=== PATIENT | male | born 1975 | race Caucasian/White ===

== ENCOUNTER 2016-08-11 12:06 | Inpatient (IN) ==
--- NOTE | 2016-08-11 13:08 | Diag Imaging Result Doc PS360 ---
EXAM: CHEST-PORTABLE HISTORY: sob/cp TECHNIQUE: Erect AP portable chest COMMENT: there is cardiomegaly. Compared to 01/07/2015 there has been no significant change in the appearance of the chest. IMPRESSION: Stable chest. Electronically signed by Jeffery Alcazar 08/11/2016 1:05 PM
[2016-08-11 13:21] LABS: MANUAL DIFF NEEDED? NO
[2016-08-11 13:30] LABS: BASO% 0.2 % (0.0-0.8); EOS# 0.01 X1000 (0.0-0.7); EOS% 0.1 % (0.0-10.0); HEMATOCRIT 38.9 % (42.0-52.0); HEMOGLOBIN 13.4 g/dL (14.0-18.0); IMM GRAN# 0.09 X1000 (0.0-0.04); IMM GRAN% 0.7 % (0.0-0.5); LYMPH# 1.01 X1000 (1.2-3.4); LYMPH% 8.4 % (20.5-51.1); MCH 27.9 PG (27-31); MCHC 34.4 g/dL (33-37); MCV 80.9 FL (81-99); MONO# 0.87 X1000 (0.11-0.59); MONO% 7.2 % (1.7-9.3); NEUT% 83.4 % (42.2-75.2); PLT 198 X1000 (130-400); RBC 4.81 XMIL (4.7-6.1)
[2016-08-11 13:43] LABS: AGAP 13; ALBUMIN 3.5 g/dL (3.5-5.0); ALKALINE PHOSPHATASE 80 U/L (32-122); BUN 17 mg/dL (8-22); CALCIUM 8.3 mg/dL (8.8-10.2); CHLORIDE 89 mmol/L (98-107); COSMO 269; GOT 38 U/L (10-34); GPT 49 U/L (10-44); SODIUM 131 mmol/L (136-145); TCO2 29 mmol/L (25-35); TOTAL PROTEIN 7.4 g/dL (6.3-8.3)
[2016-08-11] MEDS ORDERED: NS + KCL 40 MEQ 1,000 ML IV ONE (14:13)
[2016-08-11] MEDS ORDERED: KEFZOL 1 GM/D5W 1 GM/50 ML IVPB IV ONE (14:22)
[2016-08-11] MEDS ORDERED: ZOFRAN IV PRN (15:45)
[2016-08-11] MEDS ORDERED: TYLENOL PO PRN (15:45)
[2016-08-11] MEDS ORDERED: KEFZOL 1 GM/D5W 1 GM/50 ML IVPB IV SCH (17:15)
[2016-08-11] MEDS: NS 1,000 ML IV SCH (18:07)
[2016-08-11] MEDS: POTASSIUM CHLORIDE 20 MEQ/SWI 20 MEQ/100 ML IVPB IV SCH (18:07)
--- NOTE | 2016-08-11 21:49 | HISTORY AND PHYSICAL ---
CHIEF COMPLAINT: Left foot redness and edema. HISTORY OF PRESENT ILLNESS: This is a 40-year-old morbidly obese gentleman with a history of left lower extremity venous stasis, hypertension, currently not on medications and tobacco abuse. He presented to the emergency room complaining of bilateral lower extremity edema that is greater on the left and right with redness, pain and edema to his left foot. He denies any known injury. He states that he has had lower extremity edema, but when he stood up this morning his foot hurt on the top of his foot to bear any weight and he noticed redness. He does have chronic edema from the knees down. He denied any injury, any prior episodes, any known spider bites, bug bites. He was found to have a white count of 12 with a potassium of 2.3, a sodium of 131. In the emergency room he was given Kefzol and admitted for further evaluation and treatment. PAST MEDICAL HISTORY: Hypertension, morbid obesity, chronic venous stasis. PAST SURGICAL HISTORY: Denies. SOCIAL HISTORY: He denies illicit drug or alcohol use. He does smoke half a pack of cigarettes a day. ALLERGIES: No known drug allergies. HOME MEDICATIONS: Prilosec 20 mg daily. Norvasc 10 mg at bedtime. Prinivil 20 mg daily. Hygroton 25 mg daily. REVIEW OF SYSTEMS: A 14 point review of systems is discussed with patient with pertinent positives stated in HPI. He denied chest pain, palpitations, shortness of breath, dizziness, syncope, any PND, orthopnea, nausea, vomiting, diarrhea, constipation, black or bloody vomitus, black or bloody stools, hematuria, dysuria, frequency, urgency. PHYSICAL EXAMINATION: GENERAL: This is a morbidly obese 40-year-old male, who is sitting up in the bed in no distress. VITAL SIGNS: Blood pressure is 125/72 with a heart rate of 92, respirations are 20, temperature is 98.1 degrees oral with oxygen saturation 96-98% on room air. HEENT: Head is normocephalic, atraumatic. Pupils equal, round, react to light. EOMs are intact. Sclerae anicteric. Mucous membranes are moist. NECK: Supple. Trachea midline. CARDIOVASCULAR: Regular rate and rhythm. S1, S2 appreciated. PULMONARY: Breath sounds are clear. Distant due to body habitus with no increased work of breathing noted. Chest does rise and fall symmetrically with respiration. GASTROINTESTINAL: Abdomen is soft, nontender, nondistended with bowel sounds in all 4 quadrants. BACK: No CVAT. No spine tenderness. MUSCULOSKELETAL: Good range of motion to joints. NEUROLOGIC: He is alert and oriented x3. Cranial nerves 2-12 grossly intact. EXTREMITIES: No clubbing, cyanosis or edema to upper extremities. He does have bilateral lower extremity edema with 4+ pitting edema on the left from just below the knee down , with redness noted to his foot up to about mid calf. DIAGNOSTICS: WBC is 12 with hemoglobin 13.4, hematocrit 38.9, and platelets of 198,000. Sodium is 131, potassium 2.3, BUN 17, creatinine 1.1 with a glucose of 177. Foot and ankle left x-rays are pending Radiology read. ASSESSMENT: 1. Bilateral lower extremity edema. 2. Presumed cellulitis to left lower extremity. 3. Left foot and ankle pain. 4. Hypokalemia 5. History of hypertension. 6. Tobacco use. 7. Deep venous thrombosis prophylaxis. Gastrointestinal prophylaxis. PLAN: He will be admitted to the hospital. We will continue with gentle IV hydration. Blood cultures were drawn in the emergency room. He was started on cefazolin. We will continue this. We will continue his home medications, although we will hold his chlorthalidone as he does have a low sodium and potassium. We will supplement potassium and trend labs. For DVT prophylaxis, we will use Lovenox and GI prophylaxis Prilosec. We will obtain a venous ultrasound in the morning. Further treatments pending hospital course. Dictated by JESSENIA Rodriguez for Magdiel Burks MD cc: JESSENIA Rodriguez MD [facility]
[2016-08-11] MEDS: KEFZOL 1 GM/D5W 1 GM/50 ML IVPB IV SCH (22:48)
[2016-08-11] MEDS: NORVASC PO SCH (22:48)
[2016-08-11] MEDS ORDERED: POTASSIUM CHLORIDE 20 MEQ/SWI 20 MEQ/100 ML IVPB IV ONE ×2 (23:00)
[2016-08-12] MEDS: POTASSIUM CHLORIDE 20 MEQ/SWI 20 MEQ/100 ML IVPB IV SCH ×3 (00:40→18:03)
[2016-08-12 06:02] LABS: HEMATOCRIT 35.7 % (42.0-52.0); HEMOGLOBIN 12.3 g/dL (14.0-18.0); MCH 28.4 PG (27-31); MCHC 34.5 g/dL (33-37); MCV 82.4 FL (81-99); MPV 9.9 FL (7.4-10.4); RBC 4.33 XMIL (4.7-6.1)
[2016-08-12 06:23] LABS: AGAP 14; BUN 21 mg/dL (8-22); CALCIUM 7.5 mg/dL (8.8-10.2); CHLORIDE 90 mmol/L (98-107); COSMO 265; POTASSIUM 2.4 mmol/L (3.5-5.1); SODIUM 130 mmol/L (136-145); TCO2 26 mmol/L (25-35)
[2016-08-12] MEDS: KEFZOL 1 GM/D5W 1 GM/50 ML IVPB IV SCH ×3 (06:30→22:53)
[2016-08-12] MEDS: PRILOSEC PO SCH (06:30)
[2016-08-12] MEDS: NS 1,000 ML IV SCH ×3 (06:36→22:53)
--- NOTE | 2016-08-12 07:39 | Diag Imaging Result Doc PS360 ---
EXAM: ANKLE COMPLETE LEFT - 08/11/2016 HISTORY: Cellulitis, pain TECHNIQUE: Left ankle three views COMPARISON: None. FINDINGS: There is substantial soft tissue swelling over the ankle. There is no fracture or dislocation identified. There are no erosive or destructive changes identified. There are mild degenerative changes. There is prominent calcaneal spurring noted. IMPRESSION: Substantial soft tissue swelling. Mild degenerative changes. No visible acute bony abnormality. Electronically signed by Romeo Goodwin 08/12/2016 7:37 AM
--- NOTE | 2016-08-12 07:42 | Diag Imaging Result Doc PS360 ---
EXAM: FOOT COMPLETE LEFT - 08/11/2016 HISTORY: cellulitis, pain TECHNIQUE: Left foot three views COMPARISON: None. FINDINGS: There is soft tissue swelling, particularly at the dorsal hindfoot and midfoot. There is prominent calcaneal spurring. There are mild degenerative changes elsewhere. There are accessory ossicles near the proximal medial navicular, plantar cuboid, and distal head of the fifth metatarsal. There is no fracture or dislocation identified. There are no erosive or destructive changes identified. IMPRESSION: Soft tissue swelling. Prominent calcaneal spurring. Mild degenerative changes elsewhere. No visible acute bony abnormality. Electronically signed by Romeo Goodwin 08/12/2016 7:40 AM
--- NOTE | 2016-08-12 08:29 | PROGRESS NOTE ---
DATE: 08/12/2016 SUBJECTIVE: The patient notes that he is feeling a little bit better. Thinks that the pain in his left lower extremity is less than on admission. Denies any current chest pain, palpitations. Denies any fevers or chills. OBJECTIVE: Vital Signs: On physical, temp 98, pulse 96, respiratory 20, BP 131/75, satting 98% on room air. General: Patient is awake, alert. She is currently in no real respiratory distress. Speech is regular. Memory is intact. Neck: Supple. CV: Regular rate. Chest: Relatively clear. Abdomen: Soft. Extremities: Moves all extremities. Skin: Noted to have no change in the size of the redness, but is much less deep in intensity today as it was yesterday, still having the dry scaling over the medial aspect of his right lower extremity. LABS: CBC essentially normal. Potassium is still low at 2.4. Calcium 7.5. ASSESSMENT: 1. Cellulitis, left lower extremity. 2. Morbid obesity. 3. Left foot and ankle pain, improved. 4. Hypertension. 5. Tobacco abuse. PLAN: Will continue patient on IV cefazolin. We will replace his potassium. Recheck in the a.m. We will continue to follow. Further orders as needed. cc: Magdiel Burks MD
[2016-08-12] MEDS ORDERED: HYGROTON PO SCH (09:00)
[2016-08-12] MEDS: LOVENOX SUBQ SCH (09:13)
[2016-08-12] MEDS: PRINIVIL PO SCH (09:13)
--- NOTE | 2016-08-12 16:31 | Extremity Venous Study ---
EXAM: Venous U/S Bilateral Legs - 08/12/2016 HISTORY: cellulitis, edema, pain TECHNIQUE: Bilateral lower extremity Doppler venous ultrasound COMPARISON: None. FINDINGS: The deep veins of the bilateral lower extremities demonstrate flow and compressibility. There are no filling defects identified. IMPRESSION: No evidence of deep venous thrombosis in the right nor the left lower extremity. Electronically signed by Romeo Goodwin 08/12/2016 4:29 PM
[2016-08-12] MEDS: NORVASC PO SCH (22:52)
[2016-08-13 05:59] LABS: HEMATOCRIT 36.2 % (42.0-52.0); HEMOGLOBIN 12.1 g/dL (14.0-18.0); MCH 27.6 PG (27-31); MCHC 33.4 g/dL (33-37); MCV 82.6 FL (81-99); MPV 9.4 FL (7.4-10.4); RBC 4.38 XMIL (4.7-6.1)
[2016-08-13] MEDS: KEFZOL 1 GM/D5W 1 GM/50 ML IVPB IV SCH ×3 (06:12→22:06)
[2016-08-13] MEDS: PRILOSEC PO SCH (06:13)
[2016-08-13 06:43] LABS: AGAP 14; ALBUMIN 2.8 g/dL (3.5-5.0); ALKALINE PHOSPHATASE 144 U/L (32-122); BUN 14 mg/dL (8-22); CHLORIDE 94 mmol/L (98-107); COSMO 274; GOT 23 U/L (10-34); GPT 27 U/L (10-44); MAGNESIUM 2.1 mg/dL (1.5-2.7); SODIUM 136 mmol/L (136-145); TCO2 28 mmol/L (25-35); TOTAL PROTEIN 6.5 g/dL (6.3-8.3)
[2016-08-13] MEDS ORDERED: POTASSIUM CHLORIDE 20 MEQ/SWI 20 MEQ/100 ML IVPB IV SCH (08:00)
[2016-08-13] MEDS ORDERED: 1/2 NS IV SCH (08:31)
[2016-08-13] MEDS ORDERED: POTASSIUM CHLORIDE IV SCH (08:31)
[2016-08-13] MEDS: PRINIVIL PO SCH (08:44)
[2016-08-13] MEDS: LASIX IV SCH ×2 (08:45→22:06)
[2016-08-13] MEDS: LOVENOX SUBQ SCH (08:45)
--- NOTE | 2016-08-13 08:45 | PROGRESS NOTE ---
DATE: 08/13/2016 SUBJECTIVE: The patient notes that he is still having pain in his ankle but thinks that the pain in his ankle and leg is actually a little bit better. Thinks the redness may be a little bit better. OBJECTIVE: Vital Signs: Reviewed. Temperature 98 degrees, pulse 87, respiratory rate 18, BP 131/70, saturation 98% on room air. General: Patient is an awake, alert, obese male who is currently in no respiratory distress. Pleasant to talk with. Speech is regular. Memory is intact. Neck: Supple. CV: Regular rate. Chest: Relatively clear. Nonlabored. No wheezing. Abdomen: Soft, obese, nondistended. Extremities: Moves all extremities. Neurologic: No changes. Skin: Still noted to have deep erythema of his left diaz with dry scales. His erythematous area has actually improved compared to his initial admission. Diagnostic Data: Ultrasound demonstrates no evidence of a DVT. ASSESSMENT: 1. Cellulitis. Continue antibiotics, cefazolin. Certainly appears to be improving. 2. Hypertension. Continue Norvasc and lisinopril. 3. Hypokalemia. We will replace oral and follow. PLAN: We will continue Lasix. We will ask wound therapy to evaluate for Unna boots. We will recheck his potassium this afternoon as it is low and he is getting Lasix. cc: Magdiel Burks MD
--- NOTE | 2016-08-13 08:50 | VASCULAR LAB ---
PROCEDURE NAME: Arterial Bilateral Legs - 08/12/2016 BILATERAL LOWER EXTREMITY ARTERIAL STUDY: REFERRING PHYSICIAN: Hospitalist. CHIEF PSYCHOLOGIST: Donald. INDICATIONS: The patient has ulcerations involving his left distal calf. He also has skin changes along the left calf. He is morbidly obese weighing nearly 400 pounds. He also has cellulitis involving his left leg. ICD-10: Ulcer, calf L97.209 FINDINGS: Systolic brachial blood pressure on the right is 148 mmHg, on the left 142 mmHg. Right thigh 186 mmHg, left thigh 156 mmHg. Right calf 185 mmHg, left calf 171 mmHg. Right ankle 156 mmHg, left ankle 161 mmHg. At rest, the right ankle-brachial index is 1.05. The left ankle- brachial index is 1.12. He appears to have essentially normal pulse waveforms throughout both lower extremities. INTERPRETATION: This is a limited study secondary to the patient's morbid obesity, but it appears that he has at rest normal bilateral lower extremity arterial flow to both feet. cc: MD Crystal Martinez CRNP
[2016-08-13] MEDS ORDERED: KLOR-CON PO SCH (09:00)
[2016-08-13] MEDS: KLOR-CON PO SCH ×2 (09:26→22:06)
[2016-08-13] MEDS: NS 1,000 ML IV SCH (13:57)
[2016-08-13 18:12] LABS: AGAP 14; ALBUMIN 2.8 g/dL (3.5-5.0); ALKALINE PHOSPHATASE 63 U/L (32-122); BUN 13 mg/dL (8-22); CALCIUM 7.7 mg/dL (8.8-10.2); CHLORIDE 91 mmol/L (98-107); COSMO 271; GOT 26 U/L (10-34); GPT 25 U/L (10-44); POTASSIUM 2.7 mmol/L (3.5-5.1); SODIUM 133 mmol/L (136-145); TCO2 28 mmol/L (25-35); TOTAL PROTEIN 6.6 g/dL (6.3-8.3)
[2016-08-13] MEDS: NORVASC PO SCH (22:07)
[2016-08-14] MEDS: NS 1,000 ML IV SCH (04:25)
[2016-08-14] MEDS: PRILOSEC PO SCH (06:01)
[2016-08-14] MEDS: KEFZOL 1 GM/D5W 1 GM/50 ML IVPB IV SCH ×3 (06:02→21:59)
[2016-08-14] MEDS: TORADOL IV PRN ×2 (06:06→21:53)
[2016-08-14 06:58] LABS: POTASSIUM 2.2 mmol/L (3.5-5.1)
[2016-08-14 07:31] LABS: POTASSIUM 2.3 mmol/L (3.5-5.1)
[2016-08-14] MEDS: LOVENOX SUBQ SCH (08:04)
[2016-08-14] MEDS: PRINIVIL PO SCH ×2 (08:04→09:50)
[2016-08-14] MEDS: KLOR-CON PO SCH ×2 (08:04→21:54)
[2016-08-14] MEDS: LASIX IV SCH (08:05)
[2016-08-14] MEDS ORDERED: NORVASC PO SCH (08:25)
[2016-08-14] MEDS: DOXYCYCLINE PO SCH ×2 (10:45→21:53)
[2016-08-14] MEDS ORDERED: KLOR-CON PO ONE (14:07)
--- NOTE | 2016-08-14 14:40 | PROGRESS NOTE ---
DATE: 08/14/2016 SUBJECTIVE: The patient is still having pain in his foot and ankle, although he states that it is improving every day. He feels that the redness may be improving. He does have less edema. OBJECTIVE: Vital Signs: Blood pressure is 144/71 with a heart rate of 88, respirations 17, temperature 98.4 degrees, with room air saturations of 96% to 98%. Cardiovascular: Regular rate and rhythm. S1 and S2 appreciated. Pulmonary: Breath sounds are clear, with no increased work of breathing noted. Gastrointestinal: Abdomen is soft, nontender, and nondistended, with bowel sounds in all 4 quadrants. Musculoskeletal: Good range of motion of joints, with left foot limited due to pain. Extremities: No clubbing, cyanosis, or edema in the upper extremities. Lower extremities both have pitting edema, which is less than on admission. He does still continue to have deep erythema of his left diaz with scales, although this has improved somewhat. DIAGNOSTICS: Arterial Doppler of bilateral lower extremities revealed a limited study secondary to patient's morbid obesity, but it appears he has, at rest, normal bilateral lower extremity arterial flow to both feet. ASSESSMENT: 1. Cellulitis. We will continue his antibiotics. Continue to follow. 2. Hypertension. Blood pressures are running in the 140s over 60s and 70s, so we will continue with the current regimen of Norvasc and lisinopril. 3. Hypokalemia. We will continue to replace and follow laboratories. PLAN: We will continue with his diuresis. Will ask Wound Therapy to evaluate for Unna boot. Dictated by JESSENIA Rodriguez for Magdiel Burks MD cc: JESSENIA Rodriguez MD
[2016-08-15] MEDS: PRILOSEC PO SCH (06:07)
[2016-08-15] MEDS: TORADOL IV PRN (06:07)
[2016-08-15] MEDS: KEFZOL 1 GM/D5W 1 GM/50 ML IVPB IV SCH ×2 (06:07→14:50)
[2016-08-15 06:29] LABS: HEMATOCRIT 36.5 % (42.0-52.0); HEMOGLOBIN 12.2 g/dL (14.0-18.0); MCH 27.8 PG (27-31); MCHC 33.4 g/dL (33-37); MCV 83.1 FL (81-99); MPV 8.7 FL (7.4-10.4); RBC 4.39 XMIL (4.7-6.1)
[2016-08-15 06:44] LABS: AGAP 10; ALBUMIN 2.9 g/dL (3.5-5.0); ALKALINE PHOSPHATASE 53 U/L (32-122); BUN 13 mg/dL (8-22); CALCIUM 7.9 mg/dL (8.8-10.2); CHLORIDE 98 mmol/L (98-107); COSMO 277; GOT 25 U/L (10-34); GPT 22 U/L (10-44); MAGNESIUM 1.7 mg/dL (1.5-2.7); POTASSIUM 3.4 mmol/L (3.5-5.1); SODIUM 137 mmol/L (136-145); TCO2 29 mmol/L (25-35); TOTAL PROTEIN 6.4 g/dL (6.3-8.3)
[2016-08-15] MEDS: LOVENOX SUBQ SCH (08:52)
[2016-08-15] MEDS: PRINIVIL PO SCH (08:53)
[2016-08-15] MEDS: DOXYCYCLINE PO SCH (08:53)
[2016-08-15] MEDS ORDERED: KLOR-CON PO SCH (09:00)
[2016-08-15 14:18] VITALS: BP 140/80
--- NOTE | 2016-08-15 19:58 | DISCHARGE SUMMARY ---
ADMISSION DATE: 08/11/2016 DISCHARGE DATE: 08/15/2016 DIAGNOSES: 1. Cellulitis left lower extremity. 2. Hypertension. 3. Hypokalemia. MICROBIOLOGY: Blood cultures are negative x48 hours. DIAGNOSTICS: 1. Chest x-ray revealed cardiomegaly. 2. Left ankle x-ray revealed substantial soft tissue swelling, mild degenerative changes, no visible bony acute abnormality. 3. Extremity arterial study revealed a limited study secondary to patient's morbid obesity but it appears that he has at rest normal bilateral lower extremity arterial flow to both feet. 4. Bilateral lower extremity venous Doppler shows no evidence of DVT in right nor left extremity. HOSPITAL COURSE: Mr. Crystal presented to the emergency room complaining of increasing lower extremity edema as well as left ankle and foot pain. He denied any known injury. This was consistent with cellulitis for which he was treated with Keflex IV. White count was 12 on admission, it is down to 6 today. He has remained afebrile. He did have hypokalemia having a potassium of 2.3 on admission. This was followed and supplemented as needed. Magnesium was 1.9 and 2.1 at this time. He was diuresed and lower extremity edema did decrease. His left foot pain has improved. He is able to walk without difficulty. He was evaluated by Wound Care who felt that the patient did not need Unna boot as there were no open wounds. They opted to use Elta cream applied to the cobblestoned skin to his left lower extremity with Kerlix wrap for which he was instructed. DISCHARGE PHYSICAL EXAMINATION: Cardiovascular: Regular rate and rhythm. S1 and S2 appreciated. Pulmonary: Breath sounds are clear with no increased work of breathing noted. Gastrointestinal: Abdomen is soft, nontender, nondistended. Bowel sounds in all 4 quadrants. Extremities: He continues with some lower extremity edema about 2+ which has improved. He has no more erythema. Foot and ankle edema on the left has decreased. He has palpable pulses x4. DISCHARGE MEDICATIONS: 1. Keflex 500 mg p.o. q.8 hours for 14 days. 2. Lamisil 250 mg daily for 1 month. 3. Prilosec 20 mg daily. 4. Norvasc 10 mg at bedtime. 5. Prinivil 20 mg daily. 6. Chlorthalidone 25 mg daily. 7. Lasix 40 mg daily p.r.n. increased swelling to lower extremities. He was given 15 pills. 8. Klor-Con 40 mEq daily to take on days he takes Lasix. He was given 15 pills. FOLLOWUP: He is to follow up with his primary care physicians, Luis Linares and Juan Alberto Vanegas. He has also been given phone numbers to [facility] as well as the physician referral line. DISCHARGE ACTIVITY: As tolerated. DISCHARGE DIET: Regular. DISPOSITION: He is being discharged home in stable condition with family members. TIME SPENT: This is a greater than 30 minute discharge. Dictated by JESSENIA Rodriguez for Magdiel Burks MD cc: JESSENIA Rodriguez MD
--- NOTE | 2016-08-25 11:44 | PROVIDER DOCUMENTATION ---
This chart was entered by Ada Reveles Scribe, acting as scribe for Freya Saucedo MD. HPI-Musculoskeletal Pain/Inj - GENERAL Chief Complaint: Extremity Pain Stated Complaint: EXTERMITY PAIN Time Seen by Provider: 08/11/16 12:31 Source: patient - HX OF PRESENT ILLNESS-MUSKULOSKELTAL Nature of Presenting Problem: Pt is 40 y/o M presents to the ED with redness, swelling and pain to L foot. Pt states pain started last night. Pt states F since Thursday. Pt states went to walk in clinic yesterday and clinic told Pt to go to an ER. Pt denies recent injury or trauma. Quality of Pain: reports: aching Severity in ED: mild Onset/Duration: 24 hours ago Timing: still present, intermittent Modifying Factors: improves with: nothing Any recent injury?: No Locality of Occurance: Home Similar Symptoms Previously?: Yes Recently seen or treated by another doctor?: No - LOWER EXTREMITY PAIN/INJURY Lower Extremities Pain: foot: left, ankle: left Context / Method of Injury: reports: unknown Associated Symptoms: reports: weakness in legs/feet (L foot) Review of Systems - Adult - REVIEW OF SYSTEMS - ADULT Constitutional: reports: no symptoms reported Eyes: reports: no symptoms reported Ears, Nose, Mouth & Throat: reports: no symptoms reported Cardiovascular: reports: no symptoms reported Respiratory: reports: no symptoms reported Gastrointestinal: reports: no symptoms reported Genitourinary: reports: no symptoms reported Musculoskeletal: reports: no symptoms reported, other (L foot pain). denies: bone pain, neck pain Integumentary: reports: other (redness and swelling to L foot). denies: hives, itching, rash Neurological: reports: no symptoms reported Psychiatric: reports: no symptoms reported Endocrine: reports: no symptoms reported Hematologic/Lymphatic: reports: no symptoms reported Allergic/Immunologic: reports: no symptoms reported All Other Systems: Reviewed and Negative Past History - Adult - PAST MEDICAL HISTORY-ADULT Review of Records: reports: Nursing Assessment Review, Medications Reviewed, Social history reviewed & non-contributory. Major Childhood Illnesses: reports: denies history Cardiovascular: reports: HTN Respiratory: reports: denies history Gastrointestinal: reports: denies history Obstetrical/Gynecological: reports: denies history Genitourinary: reports: denies history Musculoskeletal: reports: denies history Neurological: reports: denies history Endocrine/Immune: reports: denies history Other Conditions: reports: denies history - IMMUNIZATION STATUS Childhood Immunizations: See Nurse Assessment Flu Vaccine: See Nurse Assessment - FAMILY HISTORY Family History: reviewed, not pertinent - SOCIAL HISTORY Smoking: cigarettes, less than 1 pack/day Provider spent 3-5 mins advising pt. on dangers of tobacco.: Discussed manners to quit use, and f/u contacts for add'l counseling. Substance Use: denies Living Situation: family Physical Exam-Injury Related - Physical Exam-Injury Related Initial Vital Signs Reviewed: Yes General Appearance: appears well, alert, no apparent distress Eyes: PERRL/EOMI, pink conjunctivae Head, Ears, Nose, Mouth & Throat: normocephalic/atraumatic, moist mucous membranes, normal ENT inspection Neck: non-tender, full range of motion, supple, normal inspection Respiratory: chest non-tender, lungs clear, normal breath sounds Cardiovascular: normal peripheral pulses, regular rate, rhythm Abdominal Exam: normal bowel sounds, non tender, soft Lymphatic: no adenopathy Back Exam: normal inspection, no CVA tenderness, no vertebral tenderness Extremity: normal range of motion, non-tender, erythema (L foot), swelling (L foot). negative: normal inspection Integumentary: normal color, warm/dry, erythema (L foot), swelling (L foot) Neurologic: grossly normal Psych/Mental Status: normal mood/affect, oriented x 3 Progress - PLAN OF CARE/RESULTS Progress/Plan/Lab Results: Orders Category Date Time Status IV Insertion ORDERED Care 08/11/16 12:48 Completed Vital Signs Order ROUTINE Care 08/11/16 15:45 Completed Heart Healthy Diet Diet 08/11/16 14:29 Completed CHEST-PORTABLE [RAD] Stat Exams 08/11/16 12:47 Completed BLOOD CULTURE [BLDCUL] Stat Lab 08/11/16 13:20 Completed CBC WITH ELECTRONIC DIFF [HEME] Stat Lab 08/11/16 13:05 Completed CMP [COMPREHENSIVE METABOLIC PANEL] [CHEM] Stat Lab 08/11/16 13:05 Completed Acetaminophen [Tylenol] Med 08/11/16 15:45 Discontinued 650 mg PO Q6H PRN PRN Cefazolin 1 gm/D5w [Kefzol 1 gm/D5w] Med 08/11/16 14:22 Discontinued 1 gm in 50 ml IV NOW Ketorolac [Toradol] Med 08/11/16 15:45 Discontinued 30 mg IV Q4H PRN PRN Ns + KCl 40 Meq 1,000 ml Med 08/11/16 14:13 Discontinued IV 200 mls/hr Ondansetron [Zofran] Med 08/11/16 15:45 Discontinued 4 mg IV Q4H PRN PRN Transfer/Admit Order [TRANSFER] Routine Transfer 08/11/16 14:23 Completed Result Diagrams: 08/15/16 06:05 08/15/16 06:05 - XRAY 1 XRAY Study: Chest Impression: Normal XRAY Interpretation: stable chest - CONSULTS/PCP/HOSPITALIST Notification #1 *Consult/PCP/Hospitalist*: Dr. Burks Time Discussed: 14:14 Reason/Comments: Dr. Saucedo consulted Dr. Burks about admit of Pt Consult Disposition: Admit Departure - Departure Date of Disposition Decision: 08/11/16 Time of Disposition Decision: 14:16 DIAGNOSIS: Cellulitis, Hypokalemia Disposition: ADMITTED INPATIENT 09 Certified Medical Emergency: Emergent Condition: Good - Critical Care Note This patient required my direct & personal management of CC.: No This chart was documented by the indicated scribe, (Ada Reveles Scribe) and accurately reflects the services I performed and decisions made by me, Freya Saucedo MD, as attested by the provider's signature.
== END 2016-08-15 17:47 | disposition home or self-care (01) ==
LOC: P.MEDSURG 12:06 → P.ED 12:06 → OBSVTOIN 15:06
PROVIDERS: ATTEND Family Medicine